=== PATIENT | male | born 1970 | race African-American/Black ===

== ENCOUNTER 2016-03-14 10:54 | Outpatient (CLI) | payer OTHER | END 2016-03-14 10:55 | disposition home or self-care (01) | DX: G47.33 Obstructive sleep apnea (adult) (pediatric) (principal) ==

== ENCOUNTER 2016-06-19 17:25 | Observation (INO) | payer BC, OTHER ==
[2016-06-19] MEDS ORDERED: SODIUM CHLORIDE 0.9% 1,000 ML IV ONE ×2 (17:39→18:46)
--- NOTE | 2016-06-19 17:41 | ED Physician Documentation ---
History of Present Illness - Stated complaint Stated Complaint: DIZZY, NAUSEA - Chief complaint Chief Complaint: General - History obtained from History obtained from: Patient - History of Present Illness Timing: Other (This is a 45-year-old gentleman with history of hypertension. About 2 weeks ago he found that his had been cheating on him. He became acutely depressed at that juncture and stopped eating very well. Last week he' s had lightheaded episodes especially when he stands up or changes position and sudden onset nausea with vomiting. There is no associated abdominal pain. He has had nonexertional very mild substernal chest pain radiating to the back that is only minimal at this juncture. Has had this for couple of days. There is no pedal edema, changes in his urinary complaints. He has had decreased bowel movements because of decreased eating. He says he has lost a lot of weight in the last 2 weeks.) Review of Systems Constitutional: denies: Fever, Chills Cardiac: reports: Chest pain / pressure. denies: Palpitations, Pedal edema, Calf pain Respiratory: denies: Dyspnea, Cough, Hemoptysis, Wheezing GI: denies: Abdominal Pain, Diarrhea PD PAST MEDICAL HISTORY - Past Medical History Past Medical History: Yes Cardiovascular: Hypertension - Past Surgical History Past Surgical History: No - Present Medications Home Medications: Ambulatory Orders Medication Instructions Recorded Confirmed Felodipine [Plendil] 10 mg PO DAILY 05/01/13 05/01/13 Hydrochlorothiazide 25 mg PO DAILY 05/01/13 05/01/13 Lisinopril 10 mg PO DAILY 05/01/13 05/01/13 - Allergies Allergies/Adverse Reactions: Allergies Allergy/AdvReac Type Severity Reaction Status Date / Time No Known Drug Allergies Allergy Verified 06/19/16 17:31 - Social History Does the pt smoke?: No Smoking Status: Never smoker Does the pt drink ETOH?: No Does the pt have substance abuse?: No - Immunizations Immunizations are current?: Yes - POLST Patient has POLST: No PD ED PE NORMAL - Vitals Vital signs reviewed: Yes - General General: Alert and oriented X 3, No acute distress - HEENT HEENT: PERRL, EOMI, Pharynx benign - Neck Neck: Supple, no meningeal sign, No bony TTP - Cardiac Cardiac: RRR, No murmur - Respiratory Respiratory: No respiratory distress, Clear bilaterally - Abdomen Abdomen: Soft, Non tender - Extremities Extremities: No edema, No calf tenderness / cord - Neuro Neuro: Alert and oriented X 3, Normal speech - Psych Psych: Normal mood, Normal affect Results - Vitals Vitals: Vital Signs - 24 hr 06/19/16 17:30 Temperature 36.6 C Heart Rate 77 Respiratory 20 Rate Blood Pressure 148/81 H O2 Saturation 100 Oxygen O2 Source Room air - EKG (time done) 1750 Rate: Rate (enter#) (71) Rhythm: NSR [place]: Normal QRS: LVH Ischemia: Non specific changes Computer interpretation: Agree with computer - Labs Labs: Laboratory Tests 06/19/16 06/19/16 06/19/16 17:50 17:50 17:50 WBC 9.9 RBC 5.44 Hgb 15.8 Hct 46.8 MCV 86.0 MCH 29.0 MCHC 33.7 RDW 14.1 Plt Count 187 MPV 9.5 Neut # 5.6 Lymph # 3.1 Crenshaw # 0.9 Eos # 0.3 Baso # 0.1 Absolute Nucleated RBC 0.01 Nucleated RBCs 0.1 D-Dimer Sodium 140 Potassium 3.2 L Chloride 99 L Carbon Dioxide 29 Anion Gap 12.0 BUN 37 H Creatinine 2.2 H Estimated GFR (MDRD) 40 L Glucose 92 Calcium 10.2 Total Bilirubin 0.6 AST 21 ALT 27 Alkaline Phosphatase 60 Troponin I < 0.04 Total Protein 8.7 H Albumin 4.9 Globulin 3.8 Albumin/Globulin Ratio 1.3 Lipase 67 H 06/19/16 18:33 WBC RBC Hgb Hct MCV MCH MCHC RDW Plt Count MPV Neut # Lymph # Crenshaw # Eos # Baso # Absolute Nucleated RBC Nucleated RBCs D-Dimer 217.0 Sodium Potassium Chloride Carbon Dioxide Anion Gap BUN Creatinine Estimated GFR (MDRD) Glucose Calcium Total Bilirubin AST ALT Alkaline Phosphatase Troponin I Total Protein Albumin Globulin Albumin/Globulin Ratio Lipase - Rads (name of study) 2v chest Radiology: EMP read contemporaneously (normal) PD MEDICAL DECISION MAKING - ED course ED course: 45-year-old gentleman with dizziness found to do to acute kidney injury, probably from a combination of high-dose hydrochlorothiazide as well as poor oral intake after an acute grief reaction. Call to the hospitalist for observation at 710 p.m. I expect him to recover quickly after IV fluids. - Consults Consults: Consulted (name) (Dr Mike Hoffman, hhospitalist for admission 1909) Departure - Departure Disposition: ED Place in Observation Clinical Impression: Acute kidney injury Condition: Stable
[2016-06-19 18:05] LABS: BASOPHILS # (AUTO) 0.1 10^3/uL (0.0-0.1); BASOPHILS % (AUTO) 0.8 %; EOSINOPHILS # (AUTO) 0.3 10^3/uL (0.0-0.7); EOSINOPHILS % (AUTO) 2.6 %; HCT - HEMATOCRIT 46.8 % (42.0-52.0); HGB - HEMOGLOBIN 15.8 g/dL (14.0-18.0); LYMPHOCYTES # (AUTO) 3.1 10^3/uL (1.5-3.5); LYMPHOCYTES % (AUTO) 31.2 %; MEAN CORPUSCULAR HGB CONC 33.7 g/dL (32.0-36.0); MEAN PLATELET VOLUME 9.5 fL (7.4-11.4); MONOCYTES # (AUTO) 0.9 10^3/uL (0.0-1.0); MONOCYTES % (AUTO) 9.1 %; NEUTROPHILS # (AUTO) 5.6 10^3/uL (1.5-6.6); NEUTROPHILS % (AUTO) 56.3 %; NUCLEATED RED BLOOD CELLS AUTO 0.1 /100WBC; RED BLOOD COUNT 5.44 10^6/uL (4.70-6.10); RED CELL DISTRIBUTION WIDTH 14.1 % (12.0-15.0); UNCORRECTED WHITE BLOOD COUNT 9.9 x10^3/uL; WHITE BLOOD COUNT 9.9 x10^3/uL (4.8-10.8)
[2016-06-19 18:14] LABS: ALBUMIN/GLOBULIN RATIO 1.3 (1.0-2.2); BILIRUBIN,TOTAL 0.6 mg/dL (0.2-1.0); CALCIUM 10.2 mg/dL (8.5-10.3); CREATININE 2.2 mg/dL (0.6-1.2); POTASSIUM 3.2 mmol/L (3.5-5.0); TOTAL PROTEIN 8.7 g/dL (6.7-8.2)
--- NOTE | 2016-06-19 18:31 | XRAY Preliminary Report ---
Exam: XR Chest 2 View PA/LAT IMPRESSION: No acute intrathoracic plain film abnormality. [facility] SITE ID: [id number]
--- NOTE | 2016-06-19 18:34 | XRAY Report ---
EXAM: CHEST RADIOGRAPHY EXAM DATE: 06/19/2016 06:08 PM. CLINICAL HISTORY: Chest pain. COMPARISON: 01/22/2012. TECHNIQUE: 2 views. FINDINGS: Lungs/Pleura: No focal opacities evident. No pleural effusion. No pneumothorax. Normal volumes. Mediastinum: Heart and mediastinal contours are unremarkable. Other: None. IMPRESSION: No acute intrathoracic plain film abnormality. [facility] Referring Provider Line: [phone] SITE ID: [id number]
[2016-06-19] MEDS ORDERED: LORazepam 0.5 MG TABLET PO PRN (19:20)
[2016-06-19] MEDS ORDERED: SODIUM CHLORIDE FLUSH 0.9% 10 ML SYRINGE IVP PRN (19:20)
[2016-06-19] MEDS ORDERED: ONDANSETRON ODT 4 MG TABLET TL PRN (19:20)
[2016-06-19] MEDS ORDERED: POTASSIUM CHLOR 20 MEQ/100 ML 100 ML IV SCH (19:20)
--- NOTE | 2016-06-19 19:41 | HISTORY & PHYSICAL EXAMINATION ---
Chief Complaint - Chief Complaint Chief Complaint: weakness, fatigue, intermittent vomiting History of Present Illness - Admitted From Admitted From:: [facility] room - History Obtained From Records Reviewed: EMR records, including sleep clinic records History obtained from: patient Exam Limitations: none - History of Present Illness HPI Comment/Other: this patient presented to the emergency room today, complaining of lightheadedness, nausea and vomiting, and mild chest pain,, x2 days. He reports that he recently found out that his was having an affair, and became acutely depressed, and then just stopped eating and drinking. He has lost a large amount of weight. the patient reports that he saw his primary care physician, Dr. Méndez, about 2 months ago for ongoing stress and elevated blood pressure. He and his have been having marriage difficulties,, which is leading to a lot of stress. He says about 6 weeks ago she prescribed him Prozac, "to help take the edge off". He took one dose, and became tearful,, and refuse to take it anymore. About 2 weeks ago, he discovered that his was having an affair and had become ,, and became more acutely depressed. He says he completely lost his appetite, and really has not been eating or drinking much since then. he did eat an egg sandwich today,, but immediately became nauseated. For the last several days he has been noticing lightheadedness and fatigue, particularly after bending over and then standing up. His vision has felt a little blurry at times also. He has felt a bit feverish. He also notes that after bending over and then standing back up he will feel tightness in his chest and feel a bit short of breath,, but the symptoms are quite fleeting. There is no persistent chest pain or radiation of pain or diaphoresis. He has been having some intermittent abdominal discomfort and vomiting, but denies much nausea or indigestion. He had diarrhea a few days ago , but that resolved. He denies dysuria. On review of systems,, he otherwise denies chills, headaches,, new ear symptoms beyond is chronic tinnitus.. His throat has been a little sore, after vomiting. He denies lymphadenopathy. He does not report neck stiffness. In general he is not experiencing exertional chest pain or shortness of breath, hematemesis,, bright red blood per rectum, constipation.. he has been feeling angry and frustrated, but denies feeling suicidal or homicidal. He reports that he has discussed his feelings with his primary care physician,, and also with his children, ages 13 and 18, as well as his . past medical history: Hypertension Acute depression, regarding marital difficulties Acute weight loss, due to poor oral nutrition Disordered sleep, diagnosed in 2001,, status post uvula no pallor no pharyngoplasty and at no tonsillectomy.recent sleep study results pending. History of elbow tendinitis Seborrheic dermatitis Eustachian tube dysfunction BPH--pper chart,, patient denies. Hyperlipidemia Dyshidrotic eczema Obesity current medications: Felodipine 10 mg daily HCTZ 25 mg daily Lisinopril/HCTZ 10 mg/? daily Metoprolol, dose unknown Atorvastatin, dose unknown hydralazine 3 times a day, dose unknown Allergies: No known drug allergies Social history: The patient is ,, and having marriage difficulties. He denies current alcohol use. he previously reported a 89-[id number]-inax smoking history, and quit around 2009, but says he recently resumed smoking 5-6 cigarettes per day,, about 2 months ago. .he previously worked in the [employer], and now works at the [employer]. he lives at home with his and 2 children. he rarely smokes marijuana.. Family history: father had coronary disease and with Hodgkin's lymphoma. Mother had coronary disease and hypertension.. His siblings are alive and well. History - Past Medical History Cardiovascular: reports: Hypertension - POLST Patient has POLST: No Meds/Allgy - Home Medications Home Medications: Ambulatory Orders Medication Instructions Recorded Confirmed Felodipine [Plendil] 10 mg PO DAILY 05/01/13 06/19/16 Hydrochlorothiazide 25 mg PO DAILY 05/01/13 06/19/16 Lisinopril 10 mg PO DAILY 05/01/13 06/19/16 - Allergies Allergies/Adverse Reactions: Allergies Allergy/AdvReac Type Severity Reaction Status Date / Time No Known Drug Allergies Allergy Verified 06/19/16 17:31 Exam - Vital Signs Reviewed Vital Signs: Yes Vital Signs: Vital Signs x48h Temp Pulse Resp BP Pulse Ox 06/19/16 19:19 57 L 24 147/78 H 100 06/19/16 17:30 36.6 C 77 20 148/81 H 100 on exam,the patient is a well-developed well-nourished male, in no acute distress. He shipper a stocky build. head: Normocephalic, atraumatic Eyes: PERRLA,, EOMI, anicteric, normal conjunctiva. Ears: TMs and canals are clear. Pharynx: is a bit crowded, but tonsils are absent. Teeth are in good repair. Neck: Supple, without obvious lymphadeno, JVD, thyromegaly, or bruits. Cardiac: Shows regular rate and rhythm, with normal S1 and S2, without murmurs, rubs, gallops. Lungs: Clear to auscultation, without rales,, rhonchi, wheezes. Abdomen: Is moderately obese, but soft and nontender,, without masses. Bowel sounds are normoactive.. Extremities: Show no cyanosis, clubbing,, edema. Neurologic: Patient is alert and oriented, calm and cooperative.. Mood and affect appear normal for circumstances. Cranial nerves, motor exam, cerebellar exam are all grossly nonfocal. Skin: Has a tattoo on his right neck.. Otherwise there are no obvious rashes or worrisome lesions. Conclusion/Plan - Lab Results Fish Bones: 06/19/16 17:50 06/19/16 17:50 Other Lab Results: d-dimer is normal at 217 a CBC differential is normal. GFR is low at 40 BUN and creatinine on April 28 were 16 and 1.0 phosphorus is normal at 4.1 Magnesium normal at 2.1 Total protein is elevated at 8.7 Troponin is normal at less than 0.04 lipase is mildly elevated at 67 Chest x-ray: No acute disease. EKG: Normal sinus rhythm at a rate of 71,, borderline LVH with repolarization abnormalities cholesterol panel from 04/28/2016: Total cholesterol 219, LDL cholesterol 159, , HDL 34 Issues/Core Measures - Anticipated LOS Anticipated Stay Length: Less than 2 midnights - Issues Hospital Issues and Management Plan: #1. Renal. Exam patient presents with acute renal insufficiency,, likely due to poor oral intake/dehydration, in addition to ongoing use of diuretics. -Admit for IV fluids, potassium replacement, monitoring of labs.. monitor urine output. -check magnesium and phosphorus levels also. #2. Psychiatric. -Acute depression with associated anorexia. Social work consultation. tthe patient seems reluctant to consider counseling, , but I don't think it would hurt to have social work review options with him. Certainly marriage counseling might be in order. -He did not like how Prozac made him feel recently. -Ativan when necessary anxiety/insomnia. #3. Hypertension. Patient remains hypertensive this evening. We'll need to monitor closely. Some of this may be due to stress. wwe do not appear to have an accurate home medication list. I will give him a dose of both metoprolol and hydralazine this evening, but we will need to verify his medications in the morning. -lisinopril and HCTZ are on hold, until we recheck renal function in the morning. #4. CODE STATUS: full code.. #5. DVT prophylaxis:patient is fully ambulatory.. #6. History of obstructive sleep apnea. he is awaiting results of a recent sleep study. #7. Reported history of BPH In his chart. Patient denies this. #8. Obesity. #9. Hyperlipidemia.continue Lipitor. #10. History of GERD.. Patient reports this resolved after he stopped eating chocolate and drinking alcohol. #11. tobacco abuse. he has been abstinent for about 5 years,, but did resume 2 months ago when his stress levels got to be so high. We briefly reviewed reasons he should not smoke.. This visit took approximately 65 minutes, to review his case with KRISTOFER Siegel, review his old records, interview and examine him,, and write orders.
[2016-06-19 19:49] LABS: MAGNESIUM 2.1 mg/dL (1.7-2.8); PHOSPHORUS 4.1 mg/dL (2.5-4.6)
[2016-06-19] MEDS: D5.45NS W/20 MEQ KCL 1,000 ML IV SCH (20:29)
[2016-06-19] MEDS: POTASSIUM CHLOR 10 MEQ/100 ML 100 ML IV SCH ×3 (20:30→21:20)
[2016-06-19] MEDS: SODIUM CHLORIDE FLUSH 0.9% 10 ML SYRINGE IVP SCH (22:08)
[2016-06-19] MEDS: POTASSIUM CHLORIDE 20 MEQ TABLET PO SCH (22:42)
[2016-06-20] MEDS: D5.45NS W/20 MEQ KCL 1,000 ML IV SCH ×2 (03:02→10:41)
[2016-06-20] MEDS: SODIUM CHLORIDE FLUSH 0.9% 10 ML SYRINGE IVP SCH (03:12)
[2016-06-20 06:14] LABS: BASOPHILS # (AUTO) 0.1 10^3/uL (0.0-0.1); EOSINOPHILS # (AUTO) 0.2 10^3/uL (0.0-0.7); EOSINOPHILS % (AUTO) 2.8 %; HCT - HEMATOCRIT 41.4 % (42.0-52.0); HGB - HEMOGLOBIN 13.8 g/dL (14.0-18.0); LYMPHOCYTES # (AUTO) 2.7 10^3/uL (1.5-3.5); LYMPHOCYTES % (AUTO) 36.5 %; MEAN CORPUSCULAR HEMOGLOBIN 28.6 pg (27.0-31.0); MEAN CORPUSCULAR HGB CONC 33.3 g/dL (32.0-36.0); MEAN CORPUSCULAR VOLUME 85.7 fL (80.0-94.0); MONOCYTES # (AUTO) 0.7 10^3/uL (0.0-1.0); MONOCYTES % (AUTO) 9.7 %; NEUTROPHILS # (AUTO) 3.7 10^3/uL (1.5-6.6); NUCLEATED RED BLOOD CELLS AUTO 0.1 /100WBC; RED BLOOD COUNT 4.83 10^6/uL (4.70-6.10); UNCORRECTED WHITE BLOOD COUNT 7.4 x10^3/uL; WHITE BLOOD COUNT 7.4 x10^3/uL (4.8-10.8)
[2016-06-20 06:32] LABS: ALBUMIN/GLOBULIN RATIO 1.3 (1.0-2.2); BILIRUBIN,TOTAL 0.7 mg/dL (0.2-1.0); CALCIUM 8.9 mg/dL (8.5-10.3); CREATININE 1.3 mg/dL (0.6-1.2); POTASSIUM 3.7 mmol/L (3.5-5.0); TOTAL PROTEIN 6.5 g/dL (6.7-8.2)
[2016-06-20 08:09] VITALS: BP 136/91
[2016-06-20] MEDS: hydrALAZINE 25 MG TABLET PO SCH ×2 (08:39→12:40)
[2016-06-20] MEDS: POTASSIUM CHLORIDE 20 MEQ TABLET PO SCH (08:39)
[2016-06-20] MEDS ORDERED: POLYETHYLENE GLYCOL 3350 17 GM PACKET PO SCH (09:00)
[2016-06-20] MEDS ORDERED: FELODIPINE ER 2.5 MG TABLET PO SCH (09:00)
[2016-06-20] MEDS ORDERED: METOPROLOL TARTRATE 25 MG TABLET PO SCH (09:00)
--- NOTE | 2016-06-20 10:55 | Discharge Plan ---
Discharge Plan Disposition: Home, Self Care Condition: Stable Prescriptions: Multivit-Minerals/Folic Acid [[employer] Men's Daily Gummies] 200 mcg PO DAILY #30 tab.chew Lawrence-3 Fatty Acids/Fish Oil [Lawrence-3 Fish Oil 1,000 mg Sfgl] 1 each PO BID #60 capsule Aspirin Chewable [St Ferm[place] Aspirin] 81 mg PO DAILY #30 tablet Alprazolam [Xanax] 0.5 mg PO BID PRN #30 tablet PRN Reason: Anxiety Diet: Cardiac Activity Restrictions: No Restrictions Shower Restrictions: No Driving Restrictions: No Weight Bearing: Full Weight Instruction Topics: Dehydration Additional Instructions or Follow Up instructions: Please followup with your primary care provider within the 1st week of discharge. You will need to have your blood pressure medication reevaluated as well. Take your home medication as prescribed. You have been given medication for anxiety. Take this as needed only to help with sleep and the excessive stress you are under. It is a good idea to seek out other means of stress management. Exercise, walking is a great way to relieve stres and improve blood pressure. Continue to eat a heart healthy diet. You need to include more fresh vegetable and fruit to help lower blood pressure. Avoid fast food, soda and fried food. Grilling and baked dishes are better and help to lower cholesterol and blood pressure. You have been given omega 2 fish oil for cholesterol. You need to take a multivitamin daily. Get plenty of sleep. Melatonin is a good sleep aid that is natural. If you snore, a sleep study is recommended and can be ordered from your primary care provider Follow-Up Care: Dietitian (low fat hearth healthy diet. help with weight loss and cholesterol) No Smoking: If you smoke, Please STOP! Call for help. Follow-up with: Oli Bradshaw DO [Primary Care Provider] -
[2016-06-20] MEDS ORDERED: ALPRAZolam 0.25 MG TABLET PO SCH (11:00)
[2016-06-20 11:26] LABS: CHOL/HDL RATIO 8.7 (<5.0); CHOLESTEROL 199 mg/dL; HDL CHOLESTEROL 23 mg/dL; LDL/HDL RATIO 6.7 (<3.6); TRIGLYCERIDES 106 mg/dL; VLDL CHOLESTEROL 21 mg/dL
[2016-06-20] MEDS: CYANOCOBALAMIN 1,000 MCG/ML VIAL IM ONE ×2 (12:40→12:49)
--- NOTE | 2016-06-20 18:55 | DISCHARGE SUMMARY ---
DATE OF ADMISSION: 06/19/2016 DATE OF DISCHARGE: 06/20/2016 ADMITTING DIAGNOSES: 1. Acute kidney injury with dehydration. 2. Acute depression with associated anorexia. 3. Hypertensive heart disease. DISCHARGE DIAGNOSES: 1. Acute kidney injury with mild dehydration. 2. Acute depression with associated anorexia secondary to problems with situation at home. 3. Hypertensive heart disease without congestive heart failure. 4. Obesity with body mass index greater than 30 with excessive caloric intake. 5. Mixed hyperlipidemia. 6. Chronic gastrointestinal reflux disease. 7. Moderate obstructive sleep apnea. 8. Nicotine dependence, cigarettes, uncomplicated. CONSULTATIONS: None. PROCEDURES: 1. CHEST X-RAY: Impression showed no acute infiltrates, effusions or intrathoracic plain film abnormalities. HOSPITAL COURSE AND TREATMENT: The patient is a 45-year-old obese male who presented to the ER with complaints of lightheadedness, nausea, vomiting and mild chest pain x2 days. The patient states he has had significant problems at home with his , found out that she had been having an affair and had become . The patient then said he had stopped eating and drinking and had lost significant amount of weight. The patient states that he normally sees his primary care provider, Dr. Oli Bradshaw for the ongoing stress and his elevated blood pressure that he has been having recently. He seems to feel that the chest pain and blood pressure problems are due to his home life and the amount of stress that he has been under. The patient had been taking Prozac for approximately 6 weeks; however, did not like the way it made him feel, and so he did stop taking this once he became fearful. The patient states that he has become significantly nauseated over the past 2 weeks, especially when trying to deal with his home life and his . The day of admission he was lightheaded, had significant fatigue, had trouble bending over and standing up, felt like his vision was blurry and also felt feverish with some cold chills. He came to the ER for evaluation. The patient was then admitted for further evaluation and for acute kidney injury and dehydration. At the time of admission, his creatinine was elevated at 2.2 with a BUN of 37. Potassium was low at 3.2. EKG showed normal sinus rhythm with a rate of 71. Borderline LVH repolarization abnormalities. Did have an elevated lipase of 67 and elevated amylase at 127. The patient was given IV fluids for acute renal insufficiency, potassium was replaced and labs were monitored. URINE OUTPUT: Monitored. Magnesium and phosphorus levels were within normal limits. The patient's potassium improved to greater than 3.5 and urine output was greater than 30 mL an hour, creatinine decreased to within normal limits. The patient felt better, was eating better and Zofran was given for nausea. The patient was prescribed Ativan at admission for anxiety and insomnia. However, on day of discharge, he was given a trial of Xanax which he did state did help relieve some of his anxiety and helps to "calm him out." The patient expressed need to seek some counseling for his marriage, which he would do outpatient. He did not need to have a social work consult. The patient states he does not want to go back on Prozac because of how it made him feel. Hypertension was treated with close monitoring, metoprolol and hydralazine if needed. Lisinopril and HCTZ were on hold due to renal function. The patient remained FULL CODE during inpatient treatment. His obstructive sleep apnea was treated with nasal cannula oxygen with respiratory therapy support if needed. He was counseled on obesity and dietary changes and recommended that he try to eat a low-fat, low carbohydrate diet with calorie reduction. His mixed hyperlipidemia was treated with Lipitor and lipid profile was requested. The patient does have a history of GERD and this was treated with a PPI. The patient refused a nicotine patch for tobacco smoking; however, he was counseled on smoking cessation and provided educational materials prior to discharge. TIME SPENT ON discharge was approximately 40 minutes for evaluation, assessment and education. The patient's vital signs were within normal limits at the time of discharge. He is to be ambulatory and take himself home. The patient was further instructed to make sure he follows up with his primary care provider within 1 week of discharge. He was also given additional supplements of [place] 3, multivitamin, and given a B12 injection prior to discharge. He was also told to start taking aspirin 81 mg p.o. daily. PHYSICAL EXAMINATION: CONSTITUTIONAL: The patient is alert, in no acute distress. EYES: Pupils are equal, round and react to light and accommodation. Conjunctivae and sclerae was nonicteric, not injected. ENT: Nares are patent. No nasal discharge. Oropharynx: No masses, exudates or lesions. Mucous membranes were moist. NECK: No thyromegaly. Supple. RESPIRATORY: Breath sounds are clear and equal bilaterally to auscultation and percussion, no retractions, nasal flaring, increased work of breathing. CARDIOVASCULAR: S1, S2 noted. No gallops, murmurs or rubs. Normal PMI. No JVD. GASTROINTESTINAL: Abdomen was obese, nontender. Bowel sounds were present. No guarding or rebound noted. MUSCULOSKELETAL: Full range of motion with upper and lower extremities. No edema. Pulses were palpable to bilateral upper and lower extremities. NEUROLOGIC: The patient was alert, GCS 15. Cranial nerves 2 through 7 grossly intact. Sensory is intact. PSYCHIATRIC: The patient appears anxious, not depressed at the time of assessment. No suicidal ideation, pleasant mood. HEMATOLOGIC: No active bleeding. The patient is hemodynamically stable. LYMPHATICS: No cervical, axillary, supraclavicular lymphadenopathy was noted. GENITOURINARY: No CVA tenderness. No masses were palpated. No bladder distention. DISCHARGE MEDICATIONS AT TIME OF DISCHARGE: 1. Xanax 0.5 mg p.o. q.8h. as needed for anxiety. 2. Hydrochlorothiazide 25 mg daily. 3. Lisinopril 10 mg p.o. daily. 4. Felodipine 10 mg p.o. daily. 5. Atorvastatin 40 mg p.o. daily. 6. Aspirin 81 mg p.o. daily. 7. [place] 3, 1000 mg p.o. 3 times a day with meals. 8. Multivitamin 1 tablet p.o. daily. INSTRUCTIONS FOR FOLLOWUP AND DISCHARGE: 1. ACTIVITY: Continue activities of daily living as tolerated. Take frequent rest breaks, please avoid caffeine, no drinking. Please stop smoking. 2. DIET: Please continue to eat a low fat, low calorie, heart healthy diet. Avoid soda. Drink plenty of water throughout the day, 8 glasses is preferred. 3. FOLLOWUP: Please followup with primary care provider within 1 week of discharge. I also recommended to followup with outpatient counseling to help with home life situation. The patient was given instructions to followup in the ER should chest pain or shortness of breath recur, or should he have any thoughts of hurting himself or others. The patient verbally understood all instructions that were given by hospitalist and nursing staff. He was stable to take himself home. The patient was given a prescription for Xanax to help with anxiety. Time spent on discharge for planning, assessment and education was 45 minutes. JOB #: [id number] EXT JOB #:[id number]
[2016-06-20] MEDS ORDERED: ATORVASTATIN 10 MG TABLET PO SCH (21:00)
== END 2016-06-20 13:07 | disposition home or self-care (01) ==
LOC: ED 17:25 → MS 19:20
PROVIDERS: ADMIT Internal Medicine; ATTEND Nurse Practitioner
DX: N17.9 Acute kidney failure, unspecified (principal); E86.0 Dehydration; I11.9 Hypertensive heart disease without heart failure; F32.9 Major depressive disorder, single episode, unspecified; R63.0 Anorexia; E66.09 Other obesity due to excess calories; Z68.33 Body mass index [BMI] 33.0-33.9, adult; Z71.3 Dietary counseling and surveillance; G47.33 Obstructive sleep apnea (adult) (pediatric); E78.2 Mixed hyperlipidemia; K21.9 Gastro-esophageal reflux disease without esophagitis; F17.210 Nicotine dependence, cigarettes, uncomplicated; E87.6 Hypokalemia; H93.19 Tinnitus, unspecified ear; G47.00 Insomnia, unspecified; Z63.0 Problems in relationship with spouse or partner; Z82.49 Family history of ischemic heart disease and other diseases of the circulatory system; Z80.7 Family history of other malignant neoplasms of lymphoid, hematopoietic and related tissues; F41.9 Anxiety disorder, unspecified; Z79.899 Other long term (current) drug therapy
CPT/HCPCS: 36415; 71020; 80053; 80061; 82150; 83690; 83735; 84100; 84484; 85025; 85379; 93005; 93010; 96360; 96361; 96372; 99217; 99218; 99284; A9270; 99283